=== PATIENT | male | born 1980 | race African-American/Black ===

== ENCOUNTER 2021-01-31 14:05 | Emergency (ER) | payer BC ==
[2021-01-31] MEDS ORDERED: Lidocaine 1% (PF) 30 ML VIAL ONE (15:09)
[2021-01-31] MEDS ORDERED: Lidocaine 1% PF 5 ML VIAL ONE (15:17)
[2021-01-31] MEDS ORDERED: Bacitracin 1 PK ONE (15:53)
== END 2021-01-31 16:05 | disposition home or self-care (01) ==
LOC: ERS 14:05
DX: S61.411A Laceration without foreign body of right hand, initial encounter (principal); I10 Essential (primary) hypertension; Z79.899 Other long term (current) drug therapy; Y29.XXXA Contact with blunt object, undetermined intent, initial encounter
CPT/HCPCS: 12004; J2001

== ENCOUNTER 2021-06-29 14:49 | Emergency (ER) | payer BC | END 2021-06-29 16:17 | disposition home or self-care (01) | LOC: ERS 14:49 | DX: S61.112A Laceration without foreign body of left thumb with damage to nail, initial encounter (principal); W31.89XA Contact with other specified machinery, initial encounter; I10 Essential (primary) hypertension; Z79.899 Other long term (current) drug therapy | CPT/HCPCS: 12001 ==

== ENCOUNTER 2022-03-31 07:50 | Outpatient (CLI) | payer BC | END 2022-03-31 07:51 | disposition home or self-care (01) | LOC: LABBT 07:50 | PROVIDERS: ATTEND Surgery | DX: Z20.822 Contact with and (suspected) exposure to COVID-19 (principal) | CPT/HCPCS: 87811 ==

== ENCOUNTER 2022-04-04 07:55 | Outpatient (CLI) | payer BC | END 2022-04-04 07:56 | disposition home or self-care (01) | LOC: RAD 07:55 | PROVIDERS: ATTEND Surgery | DX: K21.9 Gastro-esophageal reflux disease without esophagitis (principal); K22.89 Other specified disease of esophagus | CPT/HCPCS: 74220 ==

== ENCOUNTER 2022-04-08 09:03 | Outpatient (CLI) | payer BC | END 2022-04-08 09:04 | disposition home or self-care (01) | LOC: DTY/OP 09:03 | PROVIDERS: ATTEND Surgery | DX: E66.01 Morbid (severe) obesity due to excess calories (principal) | CPT/HCPCS: 97802 ==

== ENCOUNTER 2022-06-19 07:07 | Outpatient (CLI) | payer BC ==
[2022-06-19 10:57] LABS: ALT (SGPT) 22 U/L (8-55); AST (SGOT) 19 U/L (5-34); Albumin 4.4 g/dL (3.5-5.0); Alkaline Phosphatase 56 U/L (40-110); Anion Gap 16 mmol/L (10-20); BUN (Urea Nitrogen) 14 mg/dL (8.9-20.6); Calc. Creatinine Clearance 0 mL/min (70-130); Calcium 9.6 mg/dL (7.8-10.44); Carbon Dioxide 22 mmol/L (22-29); Chloride 101 mmol/L (98-107); Estimated GFR 94; Globulin 3.5 g/dL (2.4-3.5); Glucose 105 mg/dL (70-105); Potassium 4.3 mmol/L (3.5-5.1); Protein, Total 7.9 g/dL (6.0-8.3); Sodium 135 mmol/L (136-145)
[2022-06-19 11:00] LABS: #Basophils 0.1 10x3/uL (0.0-0.2); #Eosinphils 0.1 10x3/uL (0.0-0.5); #Monocytes 0.6 10x3/uL (0.0-1.1); #Neutrophils 2.8 10x3/uL (1.5-8.4); %Basophils 0.7 % (0.0-2.0); %Eosinophils 0.9 % (0.0-6.0); %Lymphocytes 49.1 % (18.0-47.0); %Monocytes 9.2 % (0.0-10.0); %Neutrophils 39.8 % (40.0-75.0); Hemoglobin 14.4 g/dL (13.5-17.5); Mean Corpuscular HGB CONC 32.8 g/dL (32.0-36.0); Mean Corpuscular Hemoglobin 26.5 pg (27.0-33.0); Mean Corpuscular Volume 80.8 fl (81.2-95.1); Mean Platelet Volume 10.1 fl (7.4-10.4); Platelet Count 322 10x3/uL (150-450); RBC Distribution Width 14.3 % (11.5-14.5); Red Blood Cell (RBC) Count 5.43 10x6/uL (4.32-5.72)
[2022-06-19 14:57] LABS: Hemoglobin A1c 7.1 % (4.0-6.0)
== END 2022-06-19 07:08 | disposition home or self-care (01) ==
LOC: LABBT 07:07
PROVIDERS: ATTEND Surgery
DX: Z01.818 Encounter for other preprocedural examination (principal); E66.01 Morbid (severe) obesity due to excess calories; Z20.822 Contact with and (suspected) exposure to COVID-19
CPT/HCPCS: 71046; 80053; 83036; 85025; 87811; 93005; 93010